=== PATIENT | male | born 1955 | race African-American/Black ===

== ENCOUNTER 2016-12-05 07:36 | Emergency (ER) | payer OTHER ==
[~2016-12-05] VITALS: Ht 172.7 cm; Wt 100.0 kg
[2016-12-05] MEDS ORDERED: ATEN-42 PO (07:43)
[2016-12-05] MEDS ORDERED: METF500T4 PO (07:43)
[2016-12-05] MEDS ORDERED: CLOP75TA16 PO (07:43)
[2016-12-05] MEDS ORDERED: ASPI-986 PO (07:43)
[2016-12-05] MEDS ORDERED: ONDANSETRON HCL 4MG/2ML VIAL IV STA (08:25)
[2016-12-05] MEDS ORDERED: MORPHINE SULFATE 10 MG/ML CPJ IV ONE (08:30)
[2016-12-05 08:43] VITALS: BP 122/87
[2016-12-05 09:03] LABS: BASOPHILS % 0.6 % (0.0-2.0); EOSINOPHILS % 3.6 % (0.0-5.0); HEMATOCRIT. 42.8 % (42.0-52.0); HEMOGLOBIN. 14.8 g/dL (14.0-18.0); LYMPHOCYTES % 24.5 % (20.0-50.0); MEAN CORPUSCULAR HEMOGLOBIN 32.8 pg (28.0-32.0); MEAN CORPUSCULAR VOLUME 94.7 fL (80.0-94.0); MEAN PLATELET VOLUME 7.2 fl (7.4-10.4); NEUTROPHILS % 60.3 % (40.0-76.0); PLATELET 230 x1000/uL (130-400); RED BLOOD CELL COUNT 4.52 mill/uL (4.7-6.1); RED CELL DISTRIBUTION WIDTH 13.7 % (11.6-14.6)
[2016-12-05 09:16] LABS: D-DIMER < 0.19 mg/L FEU (<0.50); INR 1.1; PARTIAL THROMBOPLASTIN TIME 27.9 sec (23.4-31.0); PROTHROMBIN TIME 11.2 sec (9.4-11.6)
[2016-12-05 09:22] LABS: CARBON DIOXIDE 26 mEq/L (21-32); CHLORIDE 106 mEq/L (98-107); ETHANOL BLOOD < 10 mg/dL; TROPONIN I < 0.02 ng/mL (0.00-0.04)
== END 2016-12-05 11:41 | disposition left against medical advice (07) ==
LOC: ER 07:55
DX: R07.89 Other chest pain (principal); I10 Essential (primary) hypertension; E11.9 Type 2 diabetes mellitus without complications; J45.909 Unspecified asthma, uncomplicated; Z95.5 Presence of coronary angioplasty implant and graft; Z79.82 Long term (current) use of aspirin; Z88.0 Allergy status to penicillin; Z99.3 Dependence on wheelchair
CPT/HCPCS: 36415; 71010; 80053; 83880; 84484; 85025; 85379; 85610; 85730; 93005; 99285; G0482

== ENCOUNTER 2017-02-11 19:51 | Emergency (ER) | payer OTHER ==
[~2017-02-11] VITALS: Ht 172.7 cm; Wt 100.0 kg
[~2017-02-11 19:51] MED LIST: ASPI-986 PO; ATEN-42 PO; CLOP75TA16 PO; METF500T4 PO
[2017-02-12] MEDS ORDERED: MORPHINE SULFATE 4 MG/ML CPJ (NOT FOR IM USE) IV STA (01:49)
[2017-02-12] MEDS ORDERED: ONDANSETRON HCL 4MG/2ML VIAL IV STA (01:49)
[2017-02-12 02:55] LABS: BASOPHILS % 1.4 % (0.0-2.0); EOSINOPHILS % 4.4 % (0.0-5.0); HEMATOCRIT. 43.1 % (42.0-52.0); HEMOGLOBIN. 14.7 g/dL (14.0-18.0); LYMPHOCYTES % 21.7 % (20.0-50.0); MEAN CORPUSCULAR VOLUME 93.4 fL (80.0-94.0); MEAN PLATELET VOLUME 7.6 fl (7.4-10.4); MONOCYTES % 10.6 % (2.0-8.0); NEUTROPHILS % 61.9 % (40.0-76.0); PLATELET 233 x1000/uL (130-400); RED BLOOD CELL COUNT 4.61 mill/uL (4.7-6.1); RED CELL DISTRIBUTION WIDTH 14.2 % (11.6-14.6)
[2017-02-12 02:59] LABS: INR 1.1; PROTHROMBIN TIME 11.2 sec (9.4-11.6)
[2017-02-12 03:06] LABS: CARBON DIOXIDE 24 mEq/L (21-32); CHLORIDE 106 mEq/L (98-107); TROPONIN I < 0.02 ng/mL (0.00-0.04)
[2017-02-12 07:14] VITALS: BP 116/95
== END 2017-02-12 07:38 | disposition home or self-care (01) ==
LOC: ER 19:51
DX: R07.9 Chest pain, unspecified (principal); M79.671 Pain in right foot; F17.200 Nicotine dependence, unspecified, uncomplicated; J45.909 Unspecified asthma, uncomplicated; E11.9 Type 2 diabetes mellitus without complications; Z88.0 Allergy status to penicillin; Z79.82 Long term (current) use of aspirin
CPT/HCPCS: 36415; 71045; 73620; 80053; 82962; 84484; 85025; 85610; 93005; 96374; 96375; 99285; J2270; J2405; Z7610

== ENCOUNTER 2017-09-01 02:30 | Emergency (ER) | payer OTHER ==
[~2017-09-01] VITALS: Ht 172.7 cm; Wt 97.7 kg
[~2017-09-01 02:30] MED LIST changes: -METF500T4 PO; +METF500T6 PO
[2017-09-01 02:41] VITALS: BP 130/89
[2017-09-01] MEDS ORDERED: ASPIRIN 81MG TABLET PO ONE (05:00)
[2017-09-01 05:55] LABS: BASOPHILS % 0.7 % (0.0-2.0); EOSINOPHILS % 4.1 % (0.0-5.0); HEMATOCRIT. 43.1 % (42.0-52.0); HEMOGLOBIN. 14.5 g/dL (14.0-18.0); LYMPHOCYTES % 30.2 % (20.0-50.0); MEAN CORPUSCULAR HEMOGLOBIN 31.9 pg (28.0-32.0); MEAN CORPUSCULAR VOLUME 94.7 fL (80.0-94.0); MEAN PLATELET VOLUME 7.4 fl (7.4-10.4); MONOCYTES % 11.5 % (2.0-8.0); NEUTROPHILS % 53.5 % (40.0-76.0); PLATELET 235 x1000/uL (130-400); RED BLOOD CELL COUNT 4.55 mill/uL (4.7-6.1); RED CELL DISTRIBUTION WIDTH 14.3 % (11.6-14.6)
[2017-09-01 05:56] LABS: CHLORIDE 106 mEq/L (98-107)
[2017-09-01 05:57] LABS: PROTHROMBIN TIME 10.9 sec (9.4-11.6)
== END 2017-09-01 11:09 | disposition left against medical advice (07) ==
LOC: ER 02:30
DX: R07.89 Other chest pain (principal); J45.909 Unspecified asthma, uncomplicated; E11.9 Type 2 diabetes mellitus without complications; I10 Essential (primary) hypertension; Z88.0 Allergy status to penicillin; Z79.899 Other long term (current) drug therapy
CPT/HCPCS: 36415; 71045; 80053; 83690; 83880; 84484; 85025; 85610; 93005; 99285

== ENCOUNTER 2017-10-16 00:20 | Emergency (ER) | payer MEDICAID, OTHER ==
[~2017-10-16] VITALS: Ht 175.3 cm; Wt 105.0 kg
[2017-10-16] MEDS ORDERED: KETOROLAC 30MG/ML VIAL IM ONE (01:15)
[2017-10-16 06:18] VITALS: BP 133/88
== END 2017-10-16 06:26 | disposition home or self-care (01) ==
LOC: ER 00:20
DX: R07.89 Other chest pain (principal); R11.2 Nausea with vomiting, unspecified; R05 Cough; J45.909 Unspecified asthma, uncomplicated; I25.10 Atherosclerotic heart disease of native coronary artery without angina pectoris; Z88.0 Allergy status to penicillin; Z79.82 Long term (current) use of aspirin; Z98.890 Other specified postprocedural states
CPT/HCPCS: 71045; 93005; 96372; 99284; J1885; J7030; Z7610

== ENCOUNTER 2017-11-01 23:19 | Emergency (ER) | payer MEDICAID ==
[~2017-11-01] VITALS: Ht 175.3 cm; Wt 130.0 kg
[2017-11-02] MEDS ORDERED: ASPIRIN 81MG TABLET PO ONE (03:00)
[2017-11-02 03:37] LABS: CHLORIDE 109 mEq/L (98-107)
[2017-11-02 06:31] LABS: BASOPHILS % 0.5 % (0.0-2.0); EOSINOPHILS % 4.2 % (0.0-5.0); HEMATOCRIT. 43.5 % (42.0-52.0); HEMOGLOBIN. 14.8 g/dL (14.0-18.0); LYMPHOCYTES % 22.5 % (20.0-50.0); MEAN CORPUSCULAR HEMOGLOBIN 32.2 pg (28.0-32.0); MEAN CORPUSCULAR VOLUME 94.5 fL (80.0-94.0); MEAN PLATELET VOLUME 7.3 fl (7.4-10.4); MONOCYTES % 14.1 % (2.0-8.0); NEUTROPHILS % 58.7 % (40.0-76.0); PLATELET 216 x1000/uL (130-400); RED CELL DISTRIBUTION WIDTH 14.1 % (11.6-14.6)
[2017-11-02 07:27] VITALS: BP 127/86
== END 2017-11-02 07:29 | disposition home or self-care (01) ==
LOC: ER 23:19
DX: R07.89 Other chest pain (principal); J45.909 Unspecified asthma, uncomplicated; I51.9 Heart disease, unspecified; I25.10 Atherosclerotic heart disease of native coronary artery without angina pectoris; Z88.0 Allergy status to penicillin; Z79.82 Long term (current) use of aspirin
CPT/HCPCS: 36415; 71045; 80053; 83880; 84484; 85025; 93005; 99285

== ENCOUNTER 2017-12-12 01:59 | Emergency (ER) | payer MEDICAID ==
[~2017-12-12] VITALS: Ht 175.3 cm; Wt 100.0 kg
[~2017-12-12 01:59] MED LIST changes: +METF-414 PO; -METF500T6 PO
[2017-12-12] MEDS ORDERED: ASPIRIN 81MG TABLET PO ONE (03:00)
[2017-12-12 03:18] LABS: BASOPHILS % 0.4 % (0.0-2.0); HEMATOCRIT. 44.7 % (42.0-52.0); HEMOGLOBIN. 15.6 g/dL (14.0-18.0); LYMPHOCYTES % 25.1 % (20.0-50.0); MEAN CORPUSCULAR HEMOGLOBIN 32.5 pg (28.0-32.0); MEAN CORPUSCULAR VOLUME 93.3 fL (80.0-94.0); MEAN PLATELET VOLUME 7.4 fl (7.4-10.4); MONOCYTES % 11.5 % (2.0-8.0); PLATELET 244 x1000/uL (130-400); RED BLOOD CELL COUNT 4.79 mill/uL (4.7-6.1); RED CELL DISTRIBUTION WIDTH 14.1 % (11.6-14.6)
[2017-12-12 03:28] LABS: CHLORIDE 107 mEq/L (98-107)
[2017-12-12 06:01] VITALS: BP 111/67
== END 2017-12-12 07:41 | disposition left against medical advice (07) ==
LOC: ER 01:59
DX: R07.89 Other chest pain (principal); E78.00 Pure hypercholesterolemia, unspecified; I11.9 Hypertensive heart disease without heart failure; E11.9 Type 2 diabetes mellitus without complications; R94.31 Abnormal electrocardiogram [ECG] [EKG]; Z79.82 Long term (current) use of aspirin; Z88.0 Allergy status to penicillin; Z95.5 Presence of coronary angioplasty implant and graft; Z79.84 Long term (current) use of oral hypoglycemic drugs
CPT/HCPCS: 36415; 71045; 83880; 84484; 93005; 99285

== ENCOUNTER 2017-12-23 00:14 | Emergency (ER) | payer MEDICAID ==
[~2017-12-23] VITALS: Ht 175.3 cm; Wt 100.0 kg
[2017-12-23 00:25] VITALS: BP 135/93
== END 2017-12-23 07:56 | disposition left against medical advice (07) ==
LOC: ER 00:14
DX: Z53.21 Procedure and treatment not carried out due to patient leaving prior to being seen by health care provider (principal)
CPT/HCPCS: 93005

== ENCOUNTER 2018-01-20 23:43 | Emergency (ER) | payer MEDICAID ==
[~2018-01-20] VITALS: Ht 175.3 cm; Wt 102.0 kg
[2018-01-21] MEDS ORDERED: ASPIRIN 325MG EC TABLET PO ONE (04:30)
[2018-01-21 04:45] LABS: BASOPHILS % 1.2 % (0.0-2.0); EOSINOPHILS % 3.6 % (0.0-5.0); HEMATOCRIT. 42.5 % (42.0-52.0); HEMOGLOBIN. 14.2 g/dL (14.0-18.0); LYMPHOCYTES % 27.9 % (20.0-50.0); MEAN CORPUSCULAR HEMOGLOBIN 31.8 pg (28.0-32.0); MEAN CORPUSCULAR VOLUME 94.8 fL (80.0-94.0); MEAN PLATELET VOLUME 7.5 fl (7.4-10.4); MONOCYTES % 11.5 % (2.0-8.0); NEUTROPHILS % 55.8 % (40.0-76.0); PLATELET 242 x1000/uL (130-400); RED BLOOD CELL COUNT 4.48 mill/uL (4.7-6.1); RED CELL DISTRIBUTION WIDTH 14.5 % (11.6-14.6)
[2018-01-21 04:52] LABS: CHLORIDE 109 mEq/L (98-107)
[2018-01-21 07:41] VITALS: BP 138/87
== END 2018-01-21 08:09 | disposition left against medical advice (07) ==
LOC: ER 23:43 → ENRESERV 01-21 07:13 → ER 01-21 08:09 → CANBEDREQ 01-21 21:25
DX: R07.89 Other chest pain (principal); I21.4 Non-ST elevation (NSTEMI) myocardial infarction; I25.2 Old myocardial infarction; K21.9 Gastro-esophageal reflux disease without esophagitis; I11.9 Hypertensive heart disease without heart failure; E78.00 Pure hypercholesterolemia, unspecified; F17.200 Nicotine dependence, unspecified, uncomplicated; Z88.0 Allergy status to penicillin; Z98.61 Coronary angioplasty status; Z79.82 Long term (current) use of aspirin
CPT/HCPCS: 36415; 71045; 83605; 83880; 84484; 93005; 99284

== ENCOUNTER 2019-03-15 21:47 | Emergency (ER) | payer MEDICAID ==
[~2019-03-15] VITALS: Ht 172.7 cm; Wt 100.0 kg
[~2019-03-15 21:47] MED LIST changes: -CLOP75TA16 PO; +CLOP75TA4 PO
[2019-03-15 22:05] VITALS: BP 117/82
== END 2019-03-16 04:17 | disposition left against medical advice (07) ==
LOC: ER 21:47
DX: Z53.21 Procedure and treatment not carried out due to patient leaving prior to being seen by health care provider (principal)
CPT/HCPCS: 93005

== ENCOUNTER 2019-03-17 22:15 | Emergency (ER) | payer MEDICAID ==
[~2019-03-17] VITALS: Ht 172.7 cm; Wt 100.0 kg
[2019-03-18] MEDS ORDERED: NITROGLYCERIN 0.4MG TABLET SL SL PRN (03:15)
[2019-03-18] MEDS ORDERED: ASPIRIN 81MG TABLET PO ONE (03:15)
[2019-03-18 04:24] LABS: CHLORIDE 108 mEq/L (98-107)
[2019-03-18 04:25] LABS: BASOPHILS % 0.5 % (0.0-2.0); EOSINOPHILS % 3.9 % (0.0-5.0); HEMATOCRIT. 42.7 % (42.0-52.0); HEMOGLOBIN. 14.2 g/dL (14.0-18.0); LYMPHOCYTES % 29.5 % (20.0-50.0); MEAN CORPUSCULAR HEMOGLOBIN 30.4 pg (28.0-32.0); MEAN PLATELET VOLUME 7.5 fl (7.4-10.4); MONOCYTES % 11.6 % (2.0-8.0); NEUTROPHILS % 54.5 % (40.0-76.0); PLATELET 222 x1000/uL (130-400); RED BLOOD CELL COUNT 4.69 mill/uL (4.7-6.1); RED CELL DISTRIBUTION WIDTH 14.7 % (11.6-14.6)
[2019-03-18] MEDS ORDERED: KETOROLAC 30MG/ML VIAL IV NR (06:01)
[2019-03-18 08:00] VITALS: BP 120/67
== END 2019-03-18 08:52 | disposition left against medical advice (07) ==
LOC: ER 22:15
DX: R07.89 Other chest pain (principal); I11.9 Hypertensive heart disease without heart failure; E11.9 Type 2 diabetes mellitus without complications; J45.909 Unspecified asthma, uncomplicated; Z87.828 Personal history of other (healed) physical injury and trauma; Z79.84 Long term (current) use of oral hypoglycemic drugs; Z79.899 Other long term (current) drug therapy; Z79.82 Long term (current) use of aspirin; Z88.0 Allergy status to penicillin
CPT/HCPCS: 36415; 71045; 80053; 83880; 84484; 85025; 93005; 96374; 99284; J1885; Z7610

== ENCOUNTER 2019-06-13 16:10 | Emergency (ER) | payer MEDICAID ==
[~2019-06-13] VITALS: Ht 165.1 cm; Wt 75.0 kg
[2019-06-13 16:17] VITALS: BP 125/84
[2019-06-13 18:00] LABS: BASOPHILS % 0.6 % (0.0-2.0); EOSINOPHILS % 4.6 % (0.0-5.0); HEMOGLOBIN. 15.2 g/dL (14.0-18.0); MEAN CORPUSCULAR HEMOGLOBIN 31.8 pg (28.0-32.0); MEAN CORPUSCULAR VOLUME 96.4 fL (80.0-94.0); MEAN PLATELET VOLUME 7.5 fl (7.4-10.4); MONOCYTES % 11.7 % (2.0-8.0); NEUTROPHILS % 60.1 % (40.0-76.0); PLATELET 212 x1000/uL (130-400); RED BLOOD CELL COUNT 4.77 mill/uL (4.7-6.1); RED CELL DISTRIBUTION WIDTH 14.7 % (11.6-14.6)
[2019-06-13 18:08] LABS: CHLORIDE 109 mEq/L (98-107)
[2019-06-13 18:12] LABS: ETHANOL BLOOD < 10 mg/dL
== END 2019-06-13 21:15 | disposition home or self-care (01) ==
LOC: ER 16:10
DX: I11.9 Hypertensive heart disease without heart failure (principal); E11.9 Type 2 diabetes mellitus without complications; J45.909 Unspecified asthma, uncomplicated; E78.00 Pure hypercholesterolemia, unspecified; Z98.61 Coronary angioplasty status; Z79.84 Long term (current) use of oral hypoglycemic drugs; Z79.82 Long term (current) use of aspirin; Z88.0 Allergy status to penicillin
CPT/HCPCS: 36415; 71045; 80053; 80320; 83880; 84484; 85025; 93005; 99285; G0480

== ENCOUNTER 2019-06-25 02:45 | Emergency (ER) | payer MEDICAID ==
[~2019-06-25] VITALS: Ht 172.7 cm; Wt 99.8 kg
[2019-06-25] MEDS ORDERED: ONDANSETRON HCL 4MG/2ML INJ IV STA (04:19)
[2019-06-25] MEDS ORDERED: MORPHINE SULFATE 4 MG/ML CPJ (NOT FOR IM USE) IV STA (04:19)
[2019-06-25] MEDS ORDERED: ASPIRIN 81MG TABLET PO ONE (04:30)
[2019-06-25 05:36] LABS: BASOPHILS % 0.9 % (0.0-2.0); EOSINOPHILS % 4.6 % (0.0-5.0); HEMOGLOBIN. 15.6 g/dL (14.0-18.0); LYMPHOCYTES % 24.9 % (20.0-50.0); MEAN CORPUSCULAR HEMOGLOBIN 32.7 pg (28.0-32.0); MEAN CORPUSCULAR VOLUME 96.2 fL (80.0-94.0); MEAN PLATELET VOLUME 7.4 fl (7.4-10.4); MONOCYTES % 10.7 % (2.0-8.0); NEUTROPHILS % 58.9 % (40.0-76.0); PLATELET 229 x1000/uL (130-400); RED BLOOD CELL COUNT 4.78 mill/uL (4.7-6.1); RED CELL DISTRIBUTION WIDTH 14.7 % (11.6-14.6)
[2019-06-25 05:45] LABS: CHLORIDE 105 mEq/L (98-107)
[2019-06-25 07:06] VITALS: BP 116/89
== END 2019-06-25 07:08 | disposition home or self-care (01) ==
LOC: ER 02:45
DX: R07.89 Other chest pain (principal); E11.9 Type 2 diabetes mellitus without complications; I10 Essential (primary) hypertension; J45.909 Unspecified asthma, uncomplicated; Z88.0 Allergy status to penicillin; Z98.61 Coronary angioplasty status; Z79.84 Long term (current) use of oral hypoglycemic drugs; Z79.82 Long term (current) use of aspirin
CPT/HCPCS: 36415; 70450; 71045; 80053; 83880; 84484; 85025; 93005; 96374; 96375; 99285; J2270; J2405; Z7610

== ENCOUNTER 2019-08-10 19:09 | Inpatient (IN) | payer MEDICAID ==
[~2019-08-10] VITALS: Ht 172.7 cm; Wt 95.5 kg
[2019-08-10] MEDS ORDERED: MAGNESIUM/ALUMINUM HYDROXIDE/SIMETHICONE 30ML UDC PO ONE (20:30)
[2019-08-10] MEDS ORDERED: ASPIRIN 81MG TABLET PO ONE (20:30)
[2019-08-10] MEDS ORDERED: VISCOUS LIDOCAINE 2% 15 ML UDC PO ONE (20:30)
[2019-08-10 21:13] LABS: BASOPHILS % 0.9 % (0.0-2.0); EOSINOPHILS % 3.3 % (0.0-5.0); HEMATOCRIT. 45.6 % (42.0-52.0); HEMOGLOBIN. 15.6 g/dL (14.0-18.0); LYMPHOCYTES % 26.4 % (20.0-50.0); MEAN CORPUSCULAR HEMOGLOBIN 32.6 pg (28.0-32.0); MEAN CORPUSCULAR VOLUME 95.2 fL (80.0-94.0); MEAN PLATELET VOLUME 7.3 fl (7.4-10.4); MONOCYTES % 12.5 % (2.0-8.0); NEUTROPHILS % 56.9 % (40.0-76.0); PLATELET 212 x1000/uL (130-400); RED BLOOD CELL COUNT 4.79 mill/uL (4.7-6.1); RED CELL DISTRIBUTION WIDTH 13.8 % (11.6-14.6)
[2019-08-10 21:21] LABS: CHLORIDE 109 mEq/L (98-107)
[2019-08-10 21:25] LABS: ETHANOL BLOOD < 10 mg/dL
[2019-08-10 21:58] LABS: *AMPHETAMINES SCREEN URINE NEGATIVE (NEGATIVE); *BARBITURATES SCREEN URINE NEGATIVE (NEGATIVE); *BENZODIAZEPINES SCREEN URINE NEGATIVE (NEGATIVE); *COCAINE SCREEN URINE PRESUMTIVE POSITIVE (NEGATIVE)
[2019-08-10 21:59] LABS: CANNABINOID URINE SCREEN NEGATIVE (NEGATIVE); METHADONE URINE SCREEN NEGATIVE (NEGATIVE); OPIATES URINE SCREEN NEGATIVE (NEGATIVE); PHENCYCLIDINE URINE SCREEN NEGATIVE (NEGATIVE)
[2019-08-11 05:50] VITALS: BP 103/75
[2019-08-11] MEDS ORDERED: MORPHINE SULFATE 2 MG/ML CPJ (NOT FOR IM USE) IV PRN (07:30)
[2019-08-11] MEDS ORDERED: NITROGLYCERIN 0.4MG TABLET SL SL PRN (07:30)
[2019-08-11 08:00] VITALS: BP 126/73
[2019-08-11] MEDS ORDERED: ASPIRIN 325MG EC TABLET PO SCH (09:00)
[2019-08-11] MEDS ORDERED: AMLODIPINE 10MG TABLET PO SCH (09:00)
[2019-08-11] MEDS ORDERED: LISINOPRIL 20MG TABLET PO SCH (09:00)
[2019-08-11] MEDS ORDERED: ENOXAPARIN 30MG/0.3ML SYR SUBCUT SCH (11:00)
[2019-08-11 12:00] VITALS: BP 109/67
[2019-08-11] MEDS ORDERED: KETOROLAC 30MG/ML VIAL IV NR (14:00)
== END 2019-08-11 13:50 | disposition left against medical advice (07) | DRG 198 ==
LOC: ER 19:09 → 5WST 08-11 01:14 → ENRESERV 08-11 04:39
PROVIDERS: ADMIT Internal Medicine; ATTEND Internal Medicine
DX: I25.111 Atherosclerotic heart disease of native coronary artery with angina pectoris with documented spasm (principal); E87.8 Other disorders of electrolyte and fluid balance, not elsewhere classified; E11.9 Type 2 diabetes mellitus without complications; E66.9 Obesity, unspecified; F14.90 Cocaine use, unspecified, uncomplicated; Z53.29 Procedure and treatment not carried out because of patient's decision for other reasons; I10 Essential (primary) hypertension; Z88.0 Allergy status to penicillin; Z95.5 Presence of coronary angioplasty implant and graft; Z71.3 Dietary counseling and surveillance; Z68.32 Body mass index [BMI] 32.0-32.9, adult
CPT/HCPCS: 36415; 80053; 80061; 80305; 80320; 83036; 83880; 84443; 84484; 85025; 93005; 99285; J1650; G0480

== ENCOUNTER 2019-08-30 22:46 | Emergency (ER) | payer MEDICAID ==
[~2019-08-30] VITALS: Ht 175.3 cm; Wt 99.7 kg
[2019-08-31] MEDS ORDERED: ASPIRIN 81MG TABLET PO ONE (00:30)
[2019-08-31 01:20] LABS: BASOPHILS % 0.9 % (0.0-2.0); EOSINOPHILS % 3.2 % (0.0-5.0); HEMATOCRIT. 45.8 % (42.0-52.0); HEMOGLOBIN. 15.5 g/dL (14.0-18.0); LYMPHOCYTES % 21.1 % (20.0-50.0); MEAN CORPUSCULAR HEMOGLOBIN 32.3 pg (28.0-32.0); MEAN CORPUSCULAR VOLUME 95.5 fL (80.0-94.0); MEAN PLATELET VOLUME 7.8 fl (7.4-10.4); NEUTROPHILS % 61.8 % (40.0-76.0); PLATELET 212 x1000/uL (130-400); RED CELL DISTRIBUTION WIDTH 13.9 % (11.6-14.6)
[2019-08-31 01:26] LABS: CHLORIDE 108 mEq/L (98-107)
[2019-08-31] MEDS ORDERED: NITROGLYCERIN 0.4MG TABLET SL SL ONE (01:30)
[2019-08-31 01:34] LABS: CREATINE KINASE 461 IU/L (39-308)
[2019-08-31 06:43] LABS: INR 1.1; PROTHROMBIN TIME 11.3 sec (9.6-11.0)
[2019-08-31] MEDS ORDERED: MORPHINE SULFATE 2 MG/ML CPJ (NOT FOR IM USE) IV PRN (06:45)
[2019-08-31] MEDS ORDERED: IPRATROPIUM/ALBUTEROL 0.5-3(2.5)MG/3ML NEB NEB PRN (06:45)
[2019-08-31] MEDS ORDERED: ACETAMINOPHEN 325MG TABLET PO PRN (06:45)
[2019-08-31] MEDS ORDERED: DOCUSATE SODIUM 100MG CAPSULE PO PRN (06:45)
[2019-08-31] MEDS ORDERED: GUAIFENESIN 200MG/10ML SUGAR FREE UDC PO PRN (06:45)
[2019-08-31] MEDS ORDERED: LORAZEPAM 2MG/ML CPJ IV PRN (06:45)
[2019-08-31] MEDS ORDERED: CLONIDINE 0.1MG TABLET PO PRN (06:45)
[2019-08-31] MEDS ORDERED: MAGNESIUM/ALUMINUM HYDROXIDE/SIMETHICONE 30ML UDC PO PRN (06:45)
[2019-08-31] MEDS ORDERED: DEXTROSE 50% WATER 50ML SYRINGE IV PRN (06:45)
[2019-08-31] MEDS ORDERED: DIPHENHYDRAMINE 50MG/ML VIAL IV PRN (06:45)
[2019-08-31] MEDS ORDERED: HYDROCODONE/ACETAMINOPHEN 10/325MG TABLET PO PRN (06:45)
[2019-08-31] MEDS ORDERED: ONDANSETRON HCL 4MG/2ML INJ IV PRN (06:45)
[2019-08-31] MEDS ORDERED: HYDRALAZINE 20MG/ML VIAL IV PRN (06:45)
[2019-08-31] MEDS ORDERED: INSULIN LISPRO 100 UNITS/ML SUBCUT SCH (08:20)
[2019-08-31] MEDS ORDERED: BLOOD SUGAR DIAGNOSTIC STRIP TEST SCH (09:00)
[2019-08-31] MEDS ORDERED: NA PHOS,M-B/NA PHOS,DI-BA ENEMA 118ML PR PRN (09:00)
[2019-08-31] MEDS ORDERED: ENOXAPARIN 30MG/0.3ML SYR SUBCUT SCH (09:00)
[2019-08-31] MEDS ORDERED: CLOPIDOGREL 75MG TABLET PO SCH (09:15)
[2019-08-31 10:24] VITALS: BP 116/70
[2019-08-31] MEDS ORDERED: SODIUM CHLORIDE 0.9% INJ 3ML FLUSH IVF SCH (14:00)
[2019-09-01] MEDS ORDERED: ASPIRIN 81MG TABLET PO SCH (09:00)
== END 2019-08-31 10:25 | disposition left against medical advice (07) ==
LOC: ER 22:46 → CANBEDREQ 08-31 10:50
DX: R07.89 Other chest pain (principal); I25.10 Atherosclerotic heart disease of native coronary artery without angina pectoris; I10 Essential (primary) hypertension; J45.909 Unspecified asthma, uncomplicated; I25.2 Old myocardial infarction; E11.9 Type 2 diabetes mellitus without complications; Z79.84 Long term (current) use of oral hypoglycemic drugs; Z91.14 Patient's other noncompliance with medication regimen; Z98.61 Coronary angioplasty status; Z79.82 Long term (current) use of aspirin; Z88.0 Allergy status to penicillin
CPT/HCPCS: 36415; 71045; 80053; 80320; 82550; 82962; 83036; 83690; 83880; 84484; 85025; 85379; 85610; 93005; 93970; 96372; 99285; J1650; Z7610; G0480

== ENCOUNTER 2019-12-31 08:57 | Emergency (ER) | payer MEDICAID ==
[~2019-12-31] VITALS: Ht 172.7 cm; Wt 103.0 kg
[2019-12-31] MEDS ORDERED: ASPIRIN 325MG EC TABLET PO ONE (10:30)
[2019-12-31 11:09] LABS: BASOPHILS % 0.6 % (0.0-2.0); EOSINOPHILS % 4.1 % (0.0-5.0); HEMATOCRIT. 42.6 % (42.0-52.0); HEMOGLOBIN. 14.9 g/dL (14.0-18.0); LYMPHOCYTES % 23.5 % (20.0-50.0); MEAN CORPUSCULAR HEMOGLOBIN 33.2 pg (28.0-32.0); MEAN PLATELET VOLUME 7.7 fl (7.4-10.4); MONOCYTES % 9.6 % (2.0-8.0); NEUTROPHILS % 62.2 % (40.0-76.0); PLATELET 215 x1000/uL (130-400); RED BLOOD CELL COUNT 4.48 mill/uL (4.7-6.1); RED CELL DISTRIBUTION WIDTH 13.7 % (11.6-14.6)
[2019-12-31 11:28] LABS: CHLORIDE 105 mEq/L (98-107)
[2019-12-31 12:57] LABS: CLARITY URINE CLEAR (CLEAR); COLOR URINE YELLOW (YELLOW); KETONES URINE NEGATIVE (NEGATIVE); LEUKOCYTE ESTERASE URINE NEGATIVE (NEGATIVE); NITRITE URINE NEGATIVE (NEGATIVE); OCCULT BLOOD URINE NEGATIVE (NEGATIVE); PROTEIN URINE NEGATIVE (NEGATIVE); SPECIFIC GRAVITY URINE 1.024 (1.005-1.030)
[2019-12-31 13:05] VITALS: BP 138/79
[2019-12-31 13:07] LABS: *AMPHETAMINES SCREEN URINE NEGATIVE (NEGATIVE); *BARBITURATES SCREEN URINE NEGATIVE (NEGATIVE); *BENZODIAZEPINES SCREEN URINE NEGATIVE (NEGATIVE); *COCAINE SCREEN URINE PRESUMTIVE POSITIVE (NEGATIVE); METHADONE URINE SCREEN NEGATIVE (NEGATIVE); OPIATES URINE SCREEN NEGATIVE (NEGATIVE)
[2019-12-31 13:08] LABS: CANNABINOID URINE SCREEN NEGATIVE (NEGATIVE); PHENCYCLIDINE URINE SCREEN NEGATIVE (NEGATIVE)
== END 2019-12-31 15:45 | disposition left against medical advice (07) ==
LOC: ER 08:57 → CANBEDREQ 20:27
DX: R07.89 Other chest pain (principal); I11.0 Hypertensive heart disease with heart failure; I50.9 Heart failure, unspecified; E11.65 Type 2 diabetes mellitus with hyperglycemia; E83.51 Hypocalcemia; R01.1 Cardiac murmur, unspecified; F14.10 Cocaine abuse, uncomplicated; F12.10 Cannabis abuse, uncomplicated; E87.70 Fluid overload, unspecified; I25.10 Atherosclerotic heart disease of native coronary artery without angina pectoris; J45.909 Unspecified asthma, uncomplicated; Z88.0 Allergy status to penicillin; Z79.84 Long term (current) use of oral hypoglycemic drugs; Z79.82 Long term (current) use of aspirin
CPT/HCPCS: 36415; 71045; 80053; 80305; 81003; 83880; 84484; 85025; 93005; 99285

== ENCOUNTER 2020-01-20 19:14 | Emergency (ER) | payer MEDICAID ==
[~2020-01-20] VITALS: Ht 170.2 cm; Wt 100.0 kg
[2020-01-20 19:43] VITALS: BP 124/77
[2020-01-20 22:10] LABS: EOSINOPHILS % 4.2 % (0.0-5.0); HEMATOCRIT. 40.8 % (42.0-52.0); HEMOGLOBIN. 14.2 g/dL (14.0-18.0); LYMPHOCYTES % 26.8 % (20.0-50.0); MEAN CORPUSCULAR HEMOGLOBIN 32.6 pg (28.0-32.0); MEAN CORPUSCULAR VOLUME 93.9 fL (80.0-94.0); MEAN PLATELET VOLUME 7.2 fl (7.4-10.4); MONOCYTES % 11.4 % (2.0-8.0); NEUTROPHILS % 56.6 % (40.0-76.0); PLATELET 221 x1000/uL (130-400); RED BLOOD CELL COUNT 4.35 mill/uL (4.7-6.1); RED CELL DISTRIBUTION WIDTH 13.4 % (11.6-14.6)
[2020-01-20 22:17] LABS: CHLORIDE 109 mEq/L (98-107)
[2020-01-20] MEDS ORDERED: ASPIRIN 325MG TABLET PO ONE (22:45)
[2020-01-21] MEDS ORDERED: MORPHINE SULFATE 4 MG/ML CPJ (NOT FOR IM USE) IV ONE (01:30)
== END 2020-01-21 06:53 | disposition left against medical advice (07) ==
LOC: ER 19:14 → CANRESERV 01-21 11:32 → ENRESERV 01-21 11:32 → CANBEDREQ 01-21 11:40
DX: R07.89 Other chest pain (principal); I25.2 Old myocardial infarction; I10 Essential (primary) hypertension; E78.00 Pure hypercholesterolemia, unspecified; E11.9 Type 2 diabetes mellitus without complications; J45.909 Unspecified asthma, uncomplicated; F14.10 Cocaine abuse, uncomplicated; F12.10 Cannabis abuse, uncomplicated; Z98.61 Coronary angioplasty status; Z79.82 Long term (current) use of aspirin; Z79.84 Long term (current) use of oral hypoglycemic drugs; Z88.0 Allergy status to penicillin
CPT/HCPCS: 36415; 80053; 83880; 84484; 85025; 93005; 99284; J2270

== ENCOUNTER 2020-02-15 23:19 | Emergency (ER) | payer MEDICAID ==
[~2020-02-15] VITALS: Ht 172.7 cm; Wt 100.0 kg
[2020-02-15 23:24] VITALS: BP 114/72
[2020-02-15] MEDS ORDERED: ASPIRIN 81MG TABLET PO ONE (23:45)
[2020-02-16 02:02] LABS: EOSINOPHILS % 4.9 % (0.0-5.0); HEMATOCRIT. 44.7 % (42.0-52.0); HEMOGLOBIN. 15.2 g/dL (14.0-18.0); LYMPHOCYTES % 26.7 % (20.0-50.0); MEAN CORPUSCULAR HEMOGLOBIN 32.5 pg (28.0-32.0); MEAN CORPUSCULAR VOLUME 95.9 fL (80.0-94.0); MEAN PLATELET VOLUME 7.3 fl (7.4-10.4); MONOCYTES % 12.1 % (2.0-8.0); NEUTROPHILS % 55.3 % (40.0-76.0); PLATELET 231 x1000/uL (130-400); RED BLOOD CELL COUNT 4.67 mill/uL (4.7-6.1); RED CELL DISTRIBUTION WIDTH 13.7 % (11.6-14.6)
[2020-02-16 02:04] LABS: CHLORIDE 104 mEq/L (98-107)
[2020-02-16] MEDS ORDERED: ASPIRIN 81MG TABLET PO NR (04:15)
== END 2020-02-16 04:11 | disposition home or self-care (01) ==
LOC: ER 23:19
DX: R07.89 Other chest pain (principal); I11.9 Hypertensive heart disease without heart failure; J45.909 Unspecified asthma, uncomplicated; F14.10 Cocaine abuse, uncomplicated; F12.10 Cannabis abuse, uncomplicated; Z59.0 Homelessness; Z79.82 Long term (current) use of aspirin; Z98.890 Other specified postprocedural states
CPT/HCPCS: 36415; 80053; 83880; 84484; 85025; 93005; 99284

== ENCOUNTER 2021-01-02 23:33 | Inpatient (IN) | payer MEDICAID ==
[~2021-01-02] VITALS: Ht 172.7 cm; Wt 94.8 kg
[~2021-01-02 23:33] MED LIST changes: +CLOP-31 PO; -CLOP75TA4 PO
[2021-01-03 00:54] LABS: BASOPHILS % 0.5 % (0.0-2.0); EOSINOPHILS % 5.1 % (0.0-5.0); HEMATOCRIT. 45.8 % (42.0-52.0); LYMPHOCYTES % 24.4 % (20.0-50.0); MEAN CORPUSCULAR HEMOGLOBIN 31.6 pg (28.0-32.0); MEAN CORPUSCULAR VOLUME 96.2 fL (80.0-94.0); MEAN PLATELET VOLUME 7.4 fl (7.4-10.4); PLATELET 246 x1000/uL (130-400); RED BLOOD CELL COUNT 4.76 mill/uL (4.7-6.1); RED CELL DISTRIBUTION WIDTH 14.3 % (11.6-14.6)
[2021-01-03 01:10] LABS: CHLORIDE 106 mEq/L (98-107)
[2021-01-03] MEDS ORDERED: AMLO5TAB4 MT (05:12)
[2021-01-03] MEDS ORDERED: CLOP-31 MT (05:12)
[2021-01-03 05:35] VITALS: BP 136/73
[2021-01-03 06:00] VITALS: BP 136/73
[2021-01-03] MEDS ORDERED: ACETAMINOPHEN 325MG TABLET PO PRN (06:30)
[2021-01-03] MEDS ORDERED: HYDROCODONE/ACETAMINOPHEN 5/325MG TABLET PO PRN (06:30)
[2021-01-03] MEDS ORDERED: DEXTROSE 50% WATER 50ML SYRINGE IV PRN (06:30)
[2021-01-03] MEDS ORDERED: ONDANSETRON HCL 4MG/2ML INJ IV PRN (06:30)
[2021-01-03] MEDS ORDERED: CLONIDINE 0.1MG TABLET PO PRN (06:30)
[2021-01-03] MEDS ORDERED: BLOOD SUGAR DIAGNOSTIC STRIP TEST SCH (06:50)
[2021-01-03] MEDS ORDERED: INSULIN LISPRO 100 UNITS/ML SUBCUT SCH (07:20)
[2021-01-03 08:14] VITALS: BP 122/72
[2021-01-03] MEDS ORDERED: ENOXAPARIN 30MG/0.3ML SYR SUBCUT SCH (09:00)
[2021-01-03] MEDS ORDERED: ASPIRIN 81MG TABLET PO SCH (09:00)
[2021-01-03] MEDS ORDERED: AMLODIPINE 2.5MG TABLET PO SCH (09:00)
== END 2021-01-03 09:50 | disposition left against medical advice (07) | DRG 816 ==
LOC: ER 23:33 → 3WST 01-03 02:30 → ENRESERV 01-03 04:21
PROVIDERS: ADMIT Internal Medicine; ATTEND Internal Medicine
DX: T40.5X1A Poisoning by cocaine, accidental (unintentional), initial encounter (principal); E11.9 Type 2 diabetes mellitus without complications; F14.90 Cocaine use, unspecified, uncomplicated; J45.909 Unspecified asthma, uncomplicated; Z53.29 Procedure and treatment not carried out because of patient's decision for other reasons; E78.5 Hyperlipidemia, unspecified; I25.10 Atherosclerotic heart disease of native coronary artery without angina pectoris; Z87.891 Personal history of nicotine dependence; I25.2 Old myocardial infarction; Z71.51 Drug abuse counseling and surveillance of drug abuser; Z95.5 Presence of coronary angioplasty implant and graft; Y92.89 Other specified places as the place of occurrence of the external cause; Z79.82 Long term (current) use of aspirin; Z79.899 Other long term (current) drug therapy; Z88.0 Allergy status to penicillin; Z79.84 Long term (current) use of oral hypoglycemic drugs; Z79.4 Long term (current) use of insulin; Z79.02 Long term (current) use of antithrombotics/antiplatelets
CPT/HCPCS: 36415; 71045; 80053; 82962; 83880; 84484; 85025; 93005; 99285